=== PATIENT | male | born 1965 | race Caucasian/White ===

== ENCOUNTER 2017-03-29 08:05 | Day surgery (SDC) | payer BC ==
[~2017-03-29] VITALS: Ht 177.8 cm; Wt 77.4 kg
[2017-03-29 08:40] VITALS: BP 132/76; PULSE 84; TEMP 97.9
[2017-03-29] MEDS ORDERED: ZANTAC 150MG T150 MG PO (08:45)
[2017-03-29] MEDS ORDERED: KLONOPIN 0.5MG0.5 MG PO ×2 (08:46)
[2017-03-29 09:30] VITALS: BP 133/75; PULSE 69; TEMP 98.2
[2017-03-29 09:45] VITALS: BP 114/71; PULSE 69
[2017-03-29 10:00] VITALS: BP 112/66; PULSE 51
[2017-03-29 12:14] VITALS: BP 117/75; PULSE 89
== END 2017-03-29 10:25 | disposition home or self-care (01) ==
LOC: SDCO 08:05
DX: Z12.11 Encounter for screening for malignant neoplasm of colon (principal); D12.8 Benign neoplasm of rectum; K21.9 Gastro-esophageal reflux disease without esophagitis
CPT/HCPCS: J2250; J3010; J7030

== ENCOUNTER 2018-04-18 08:40 | Day surgery (SDC) | payer BC ==
[~2018-04-18] VITALS: Ht 177.8 cm; Wt 75.4 kg
[~2018-04-18 08:40] MED LIST: KLONOPIN 0.5MG0.5 MG PO; ZANTAC 150MG T150 MG PO
[2018-04-18 09:18] VITALS: BP 114/72; PULSE 56; TEMP 97
[2018-04-18 11:05] VITALS: BP 122/68; PULSE 67; TEMP 97
[2018-04-18 11:20] VITALS: BP 114/72; PULSE 68
[2018-04-18 11:35] VITALS: BP 108/63; PULSE 55
== END 2018-04-18 11:40 | disposition home or self-care (01) ==
LOC: SDCO 08:40
DX: Z12.11 Encounter for screening for malignant neoplasm of colon (principal); Z86.010 Personal history of colon polyps; K21.9 Gastro-esophageal reflux disease without esophagitis
CPT/HCPCS: OP; J2250; J2405; J3010; J7030

== ENCOUNTER 2020-10-17 08:17 | Inpatient (IN) | payer BC ==
[~2020-10-17] VITALS: Ht 177.8 cm; Wt 80.7 kg
[2020-11-08 08:21] LABS: HEMATOCRIT 46.4 % (42.0-52.0); HEMOGLOBIN 15.4 g/dl (13.5-18.0); MEAN CELL VOLUME 91 fl (80.0-100.0); MEAN CORPUSCULAR HEMOGLOBIN 30 pg (27.0-31.0); MEAN CORPUSCULAR HGB CONC 33 g/dl (33.0-37.0); MEAN PLATELET VOLUME 9.3 fl (7.4-10.4); PLATELET COUNT 235 K/mm3 (130-400); RED BLOOD COUNT 5.09 M/mm3 (4.20-5.60); REDCELL DISTRIBUTION WIDTH-CV 13.2 % (11.5-14.5)
[2020-11-08 08:27] LABS: ALBUMIN 4.3 gm/dL (3.5-5.0); BILIRUBIN,TOTAL 0.8 mg/dL (0.0-1.0); CALCIUM 9.5 mg/dL (8.4-10.2); CREATININE, serum 1.07 (0.66-1.25); POTASSIUM 4.5 mmol/L (3.4-5.0); TOTAL PROTEIN 7.3 gm/dL (6.4-8.2)
[2020-11-09] VITALS (11 sets, daily range): BP systolic 105–127; BP diastolic 45–73; PULSE 63–94; TEMP 97.6–98.3
[2020-11-09] MEDS ORDERED: PEPCID 20MG TAB20 MG PO (05:44)
--- NOTE | 2020-11-09 05:50 | NUR ---
Lab was called to come draw the patient's re-type and screen as ordered. The nurse was informed that they did not have a heat transfer technician available to send to do the draw. The lab personnel asked when the draw needed to be done by which the nurse stated no later than 0700 and the lab personnel said she would send someone before that time to have it drawn.
--- NOTE | 2020-11-09 06:06 | NUR ---
The patient ambulated back to [facility] independently using a steady gait and appeared to tolerate the activity well. Vital signs obtained. Consent signed. 18G IV started in right wrist with one stick, NS infusing without difficulty. Heart Reg. Lungs clear. Bowel sounds audible. Call light is within reach. The patient denies any further needs at this time. Will continue to monitor the patient.
--- NOTE | 2020-11-09 06:24 | NUR ---
Dr. Gandara is at the patient's bedside to talk with him pre operatively. The nurse informed the doctor that the patient's re-type and screen has not been completed due to lab staff availability. He verbalized understanding and is ok to proceed with surgery without the re-type being drawn pre operatively.
--- NOTE | 2020-11-09 07:00 | NUR ---
The patient was taken back via cart to the operating room at this time. The patient's chart was sent with him to surgery. The patient's belongings were taken over to the recovery room and will be taken up with the patient to the 3rd floor when he is transferred there post operatively.
--- NOTE | 2020-11-09 11:25 | NUR ---
Patient to room via bed from PACU. Patient is alert and oriented x4, drowsy. Denies pain at this time. Lap sites x5 to abd all with edges well approximated, no redness/swelling/discharge, swiftset in place. Mosquera to dependent drainage draining bloody urine. Oriented to room.
--- NOTE | 2020-11-09 13:20 | NUR ---
Sitting up in bed with eyes open. Minimal pain in abd at this time. Discuss with the patient that if he needs pain medication to let me know, denies need at this time. Patient says that he feels like he is waking up more and his dizziness is less. Provided more water and jello per patient request. Denies additional needs at this time.
--- NOTE | 2020-11-09 15:33 | NUR ---
Sitting up in bed with eyes open. Denies pain at this time. Has some discomfort from the catheter but no pain. Catheter with astrid colored urine in bag. Patient denies needs at this time.
--- NOTE | 2020-11-09 17:01 | NUR ---
Patient asks if he can get out of bed. Explain that the provide recommends out of bed for at least 2 hours. Patient would like to get up at this time. This nurse and stand by assist of SERA Lizarraga, assist patient out of bed and up to chair. Patient tolerates with little difficulty. Assist patient to comfortable position in the recliner. Rates pain at 3/10, declines need for pain medication. Provide fresh water and ice chips. Patient denies additional needs at this time.
--- NOTE | 2020-11-09 22:01 | NUR ---
PATIENT SITTING UP IN CHAIR WITH NO COMPLAINTS OF PAIN. FLUIDS RUNNING. 5 LAP SITES OPEN TO AIR. WORTHY DRAINING YELLOW URINE. CALL LIGHT IS IN REACH. PATIENT HAS NO OTHER NEEDS AT THIS TIME.
[2020-11-10 03:53] VITALS: BP 104/48; PULSE 86; TEMP 98.3
--- NOTE | 2020-11-10 05:37 | NUR ---
Patient slept well throughout the night. No complaints of pain. VSS. call light is in reach. No other needs at this time.
[2020-11-10 07:49] VITALS: BP 117/47; PULSE 65; TEMP 97.8
[2020-11-10 07:54] LABS: HEMATOCRIT 38.4 % (42.0-52.0)
[2020-11-10 07:55] LABS: HEMOGLOBIN 12.7 g/dl (13.5-18.0)
[2020-11-10 08:20] LABS: CALCIUM 8.4 mg/dL (8.4-10.2); CREATININE, serum 0.91 (0.66-1.25)
--- NOTE | 2020-11-10 09:57 | NUR ---
SW met with the patient to discuss discharge plan. The patient lives in [place] with his , Teodora (ph#[phone]). He reports independence with ADLs and does not have any DME. The patient's PCP is Dr. Rohit Fuentes and he receives his medications from [facility]. He reports no difficulties obtaining his meds. The patient provided SW with his DPOA-HC and Living Will. SW placed the documents in the patient's chart. The patient's DPOA-HC is his . The patient plans to return home with his upon discharge. No additional needs at this time.
--- NOTE | 2020-11-10 10:46 | NUR ---
Patient alert and oriented, answers questions appropriately. See assessment. Abdomen soft, non tender, non distended. Bowel sounds active x4 quads. +Flatus. Lap sites to abdomen with edges well approximated, no redness or drainage noted. Mosquera catheter in place and draining clear yellow urine. ERAS protocol reviewed with patient. No c/o at this time.
[2020-11-10 12:13] VITALS: BP 123/57; PULSE 53; TEMP 98.7
--- NOTE | 2020-11-10 13:15 | NUR ---
Mosquera catheter care and bag change reviewed with patient, verbalized understanding.
--- NOTE | 2020-11-10 13:18 | NUR ---
REED drain to RLQ removed per drs order, no difficulty.
--- NOTE | 2020-11-10 13:35 | NUR ---
Discharge instructions reveiwed with patient, verbalized understanding. Discharged ambulatory to auto/home with spouse at 1330.
== END 2020-11-10 13:30 | disposition home or self-care (01) | DRG 708 ==
LOC: INPTSU 11-09 05:28 → SURG 11-09 07:30
PROVIDERS: ADMIT Urology
PROC: 0VT04ZZ Resection of Prostate, Percutaneous Endoscopic Approach (ICD-10-PCS; principal; 2020-11-09 07:30)
DX: C61 Malignant neoplasm of prostate (principal); K21.9 Gastro-esophageal reflux disease without esophagitis; F41.9 Anxiety disorder, unspecified; N40.0 Benign prostatic hyperplasia without lower urinary tract symptoms; Z98.52 Vasectomy status
CPT/HCPCS: A4314; A9284; J0690; J1100; J1885; J2250; J2405; J2704; J7030; J7120

== ENCOUNTER 2021-04-21 06:03 | Day surgery (SDC) | payer BC ==
[~2021-04-21] VITALS: Ht 177.8 cm; Wt 81.6 kg
[~2021-04-21 06:03] MED LIST changes: +PEPCID 20MG TAB20 MG PO
[2021-04-21 06:23] VITALS: BP 120/74; PULSE 65; TEMP 97.8
[2021-04-21 07:17] VITALS: TEMP 37.1
[2021-04-21 07:25] VITALS: BP 109/83; PULSE 84
--- NOTE | 2021-04-21 07:25 | NUR ---
Patient returns to [facility] [address] per cart and transfers from cart to recliner with two person assist. IV fluids infusing. Denies pain or nausea. Spouse in room.
[2021-04-21 07:40] VITALS: BP 109/80; PULSE 71
--- NOTE | 2021-04-21 07:40 | NUR ---
Resting and tolerated muffin and applejuice. Denies abdominal pain or nausea.
--- NOTE | 2021-04-21 07:45 | NUR ---
Dr. Tavera here to talk with patient and all questions answered. IV discontinued and site is free of redness.
--- NOTE | 2021-04-21 07:53 | NUR ---
Dismissal instructions and given voices understanding of these. Dressed and patient dismissed to home driven by spouse and taken to the front door per wheelchair and assisted into vehicle.
== END 2021-04-21 07:53 | disposition home or self-care (01) ==
LOC: SDCO 06:03
DX: Z12.11 Encounter for screening for malignant neoplasm of colon (principal); K21.9 Gastro-esophageal reflux disease without esophagitis; F41.9 Anxiety disorder, unspecified; Z85.46 Personal history of malignant neoplasm of prostate; Z79.899 Other long term (current) drug therapy; Z86.010 Personal history of colon polyps
CPT/HCPCS: J7120